=== PATIENT | male | born 1950 | race Caucasian/White ===

== ENCOUNTER 2017-07-24 05:49 | Inpatient (IN) | payer MEDICARE, BC ==
[2017-07-19 09:55] LABS: URINE BILIRUBIN NEGATIVE (Negative); URINE BLOOD 1+ (Negative); URINE CLARITY CLEAR; URINE COLOR YELLOW; URINE GLUCOSE-RANDOM NEGATIVE (Negative); URINE KETONES NEGATIVE (Negative); URINE LEUKOCYTES-REFLEX NEGATIVE (Negative); URINE NITRITE-REFLEX NEGATIVE (Negative); URINE PROTEIN TRACE (Negative); URINE SPECIFIC GRAVITY >= 1.030 (1.005-1.030); URINE UROBILINOGEN 0.2 E.U./dl (0.2-1.0)
[2017-07-19 10:11] LABS: BACTERIA-REFLEX 1-9 Few /HPF (None Seen); CASTS None Seen /LPF (None Seen); CRYSTALS None Seen /LPF (None Seen); SQUAMOUS NONE SEEN /LPF (0-3); URINE RBC 0-2 Rare /HPF (0-2); URINE WBC-REFLEX 0-5 Rare /HPF (0-5)
[2017-07-19 10:17] LABS: HEMATOCRIT 45.7 % (42.0-52.0); HEMOGLOBIN 15.6 gm/dL (14.0-18.0); MCHC 34.1 g/dL (28.0-37.0); MPV 9.3 fl. (7.2-11.1); RBC 5.02 mil/uL (4.50-6.00); RDW-CV 12.9 % (10.5-14.5)
[2017-07-19 10:27] LABS: INR 1.1; PROTIME 10.7 Seconds (9.20-11.50)
[2017-07-19 10:35] LABS: ALBUMIN 4.2 g/dL (3.4-5.0); CALCIUM 9.1 mg/dL (8.5-10.1); CREATININE 1.2 mg/dL (0.6-1.3); POTASSIUM 4.2 mmol/L (3.5-5.1); TOTAL BILIRUBIN 0.5 mg/dL (<0.1-1.0); TOTAL PROTEIN 7.8 g/dL (6.4-8.2)
--- NOTE | 2017-07-20 14:10 | EKG ---
[place] [address] ELECTROCARDIOGRAM REPORT Name: ZEKE FINNEY Room: PRE IN [facility].#: [id number] Admission: Attend Phys: Betty Lainez Discharge: Date of : 48 Report #: [id number] THIS REPORT FOR: //name// [facility] Test Date: 2017-07-19 Test Time: 08:49:16 Pat Name: ZEKE BEARDFELIPA Department: Room: Gender: M Counsellors: LAYNE : 1950 Requested By: Lai Anguiano Order Number: [id number] Reading MD: Erasmo Locke Measurements Intervals [place] Rate: 62 P: 38 KS: 171 QRS: -22 QRSD: 104 T: 34 QT: 416 QTc: 423 Interpretive Statements Sinus rhythm Borderline left axis deviation Baseline wander in lead(s) V3 No previous ECG available for comparison Electronically Signed On 07-20-2017 14:10:41 MISSILEMAN by Erasmo Locke [email or web address] <ELECTRONICALLY SIGNED> By: Erasmo Locke MD, [facility] 07/20/17 1410 0849 0849 Erasmo Locke MD, FACC /EPI
[~2017-07-24] VITALS: Ht 193 cm; Wt 99.8 kg
[~2017-07-24 05:49] MED LIST: TRICOR145 MG PO; ZOCOR20 MG PO
[2017-07-24 11:19] VITALS: BP 149/86
[2017-07-24 17:49] VITALS: BP 141/65
[2017-07-24 20:30] VITALS: BP 134/78
[2017-07-25 00:12] VITALS: BP 148/77
[2017-07-25 03:57] VITALS: BP 140/96
[2017-07-25 04:47] LABS: HEMATOCRIT 40.1 % (42.0-52.0); HEMOGLOBIN 13.4 gm/dL (14.0-18.0)
[2017-07-25 08:10] VITALS: BP 141/74
[2017-07-25] MEDS ORDERED: ASPIRIN325 PO (16:59)
[2017-07-25] MEDS ORDERED: PERCOCET PO (17:00)
[2017-07-25] MEDS ORDERED: COLACE100 MG PO (17:01)
[2017-07-25 17:02] VITALS: BP 141/74
[2017-07-25 17:52] VITALS: BP 141/74
--- NOTE | 2017-07-27 15:12 | S ---
[place] [address] SURGICAL PATH RPT PROCEDURE Name: KISHAALBAN LEO Room: [address] IN .R.#: [id number] Admission: 07/24/17 Date of : 48 Discharge: 07/25/17 Report #: [id number] Path Case #: [id number] PATHOLOGY REPORT COLLECTION DATE: 07/24/2017 RECEIVED DATE: 07/25/2017 SUBMITTING PHYS: Dr. Lai Anguiano II OTHER PHYS: Dr. Alban Leach SPECIMEN(S) RECEIVED: A.Left hip bone and tissue * * * * * * * * * * * * FINAL DIAGNOSIS: Left hip bone and tissue: - Fragments of benign bone and cartilage including hematopoietic elements, with degenerative changes and benign dense fibrous connective tissue, synovium and skeletal muscle. (AGATHA:[facility]; 07/26/2017) PATHOLOGIST: Jasson Bardales M.D. REPORT ELECTRONICALLY SIGNED BY: Jasson Bardales M.D. DATE/TIME: 07/27/2017 15:11 * * * * * * * * * * * * GROSS PATHOLOGY: The specimen is received in formalin, labeled "Cody Alban, left hip bone and tissue," and consists of scant fragments of bone, and soft tissue, and bone reamings measuring 12.7 x 10.3 x 1.7 cm in aggregate dimensions. There is no grossly identifiable bone with articular surfaces. Language Tutor sections are submitted in cassette A1 following decalcification including the entire scant bone fragments. (SDY; 07/25/2017) After initial microscopic examination additional sections of soft tissue are submitted in cassettes A2-A3. (SDY; 07/26/2017) CLINICAL HISTORY: Left hip degenerative joint disease INITIAL CPT CODE(S): A; 34020, 66953 Professional services performed by [facility] at [facility], [address] [place] [address]. [place] [address] SURGICAL PATH RPT PROCEDURE Name: ALBAN FINNEY Room: [address] IN ..#: [id number] Admission: 07/24/17 Date of : 48 Discharge: 07/25/17 Report #: [id number] Path Case #: [id number] services performed by [facility] at [address] [place] [address], [place] [address] [address]. [facility] [address] [place] [address] PHONE: [phone] DIRECTOR: Meliton White M.D. * * * END OF REPORT * * *
--- NOTE | 2017-08-08 16:33 | OP ---
[facility] [address] [place] [address] OPERATIVE REPORT Name: ZEKE FINNEY Room: [address] IN .R.#: [id number] Admission: 07/24/17 Attend Phys: Betty Lainez Discharge: 07/25/17 Date of : 48 Report #: [id number] THIS REPORT FOR: //name// CC: Martir Del Real DATE OF SERVICE: 07/24/2017 PREOPERATIVE DIAGNOSIS: Left hip osteoarthritis. POSTOPERATIVE DIAGNOSIS: Left hip osteoarthritis. PROCEDURE: Left total hip arthroplasty with ceramic on polyethylene. ANESTHESIA: General endotracheal. ESTIMATED BLOOD LOSS: 250 mL, with 180 mL given back through [employer]. ANTIBIOTICS: Ancef preoperatively. DRAINS: Hemovac. COMPLICATIONS: None. CONDITION: Stable to recovery room. IMPLANTS: Listed in the operative record and progress note. BRIEF HISTORY: The patient was seen in the preoperative area. Preop H and P was performed. The patient's site was marked, questions were answered. Risks and benefits discussed with the patient in detail about surgery. The patient wished to proceed and assumed all risks. DESCRIPTION OF PROCEDURE: The patient was taken to the operative suite, placed supine on the table and given appropriate anesthesia. The patient's operative hip was placed in the [place] table leg coello and sterilely prepped and draped in the supine positions. Surgery was begun by longitudinal incision over the anterior portion of the hip, the skin and subcutaneous tissues. A small eliseo was made in the tensor fascia. It was then split along its fibers and retracted laterally. An H capsulotomy was then performed, and hemostasis was maintained with electrocautery and Aquamantys. The head and neck cutting alignment guide was then checked with fluoroscopic guidance. Appropriate cut was made in the head and neck, and this was then removed. Attention was turned to the acetabulum. Excess labrum was removed. It was then reamed in sequential fashion to the appropriate size which showed excellent bleeding bone, [place] [address] OPERATIVE REPORT Name: ZEKE FINNEY Room: [address] IN [facility].#: [id number] Admission: 07/24/17 Attend Phys: Betty Lainez Discharge: 07/25/17 Date of : 48 Report #: [id number] position on fluoroscopic guidance. The acetabular cup was then malleted in position and secured with cancellous screws. The metal liner was then applied. The patient's leg was then rotated and extended on the [place] table to expose the femur. It was then broached in sequential fashion up to the appropriate size. The appropriate neck was then trialed with appropriate length of head, it showed excellent range of motion, excellent fit and fill with excellent stability of the hip throughout all range of motion. These trials were then removed. The final stem was then malleted in position, and the final head and neck were then malleted into position. It was then reduced in appropriate fashion, checked with C-arm for appropriate leg length and showed excellent leg length throughout the exam without evidence of dislocation upon range of motion and shuck testing. The wound was then copiously irrigated. Hemostasis was maintained with electrocautery and Aquamantys. Pain cocktail was injected. PRP gel was sprayed throughout the internal aspects of the hip, and the drain was activated. The H capsulotomy was then closed with #1 Vicryl in a [id number]-yo-[id number] fashion. Tensor fascia closed with #1 Vicryl in running fashion. Skin was closed with 2-0 Vicryl and a running 3-0 Monocryl with Dermabond. Sterile dressing applied. The patient transferred to recovery room in stable condition. Counts were correct throughout the case. <ELECTRONICALLY SIGNED> By: Lai Anguiano II, DO 08/08/17 1633 1226 [id number] Anguiano II, DO /nt
== END 2017-07-25 17:52 | disposition home or self-care (01) | DRG 470 ==
LOC: M.PRE 05:49 → M.ORTHSURG 10:30 → M.TBA 10:30 → M.ORTHSURG 16:49
PROVIDERS: Orthopaedic Surgery; ADMIT Internal Medicine
PROC: 0SRB04Z Replacement of Left Hip Joint with Ceramic on Polyethylene Synthetic Substitute, Open Approach (ICD-10-PCS; principal; 2017-07-25)
DX: M16.12 Unilateral primary osteoarthritis, left hip (principal); G89.29 Other chronic pain; E78.5 Hyperlipidemia, unspecified; Z79.899 Other long term (current) drug therapy; Z85.820 Personal history of malignant melanoma of skin